=== PATIENT | female | born 2000 | race Caucasian/White ===

== ENCOUNTER 2024-12-11 16:18 | Emergency (ER) | payer OTHER, SELFPAY ==
[2024-12-11 16:28] VITALS: BP 120/75; PULSE 96; TEMP 37.1; O2SAT 99; BMI 39.0
[2024-12-11] MEDS: KETOROLAC TROMETHAMINE 10 MG TABLET PO (18:32)
--- NOTE | 2024-12-11 19:40 | PC.NURSE ---
Pt states pain is tolerable at thia time. Continue to await CT results.
--- NOTE | 2024-12-11 19:46 | ED.GENADUL1 ---
HPI HPI - General Adult General Chief complaint: Headache Stated complaint: NECK AND HEAD PAIN Time Seen by Provider: 12/11/24 18:02 Source: patient and friend Mode of arrival: walk-in Limitations: no limitations History of Present Illness HPI narrative: Patient is a 24-year-old female who presents to the emergency department for 3-day history of headache. She is concerned because she does not regularly get headaches. She states the headache is located on the bilateral occiput with radiation into the sides of the neck and shoulders. She denies visual changes, peripheral paresthesias. She has not had any fevers, upper respiratory symptoms. No nausea or vomiting. She has no concern for . She took ibuprofen yesterday with minimal improvement. No head trauma history. Related Data Home Medications ?Medication ?Instructions ?Recorded ?Confirmed quetiapine 150 mg tablet,extended 150 mg PO DAILY 12/11/24 12/11/24 release 24 hr (Seroquel XR) Previous Rx's ?Medication ?Instructions ?Recorded ketorolac 10 mg tablet 10 mg PO TID PRN pain #10 tabs 12/11/24 methocarbamol 750 mg tablet 750 mg PO TID PRN pain #20 tabs 12/11/24 ondansetron 4 mg disintegrating 4 mg PO Q6H PRN nausea and 12/11/24 tablet vomiting #12 tabs Allergies Allergy/AdvReac Type Severity Reaction Status Date / Time No Known Drug Allergies Allergy Verified 12/11/24 16:32 Opioid HPI Opioid Management Most Recent Opioid Data: Last DEC Pain Assessment 12/11/24 18:32 Review of Systems ROS Constitutional Denies: fever or chills Eyes Denies: blurry vision Ears, nose, mouth, and throat Reports: neck pain; Denies: throat pain or nasal congestion Cardiovascular Denies: chest pain Respiratory Denies: shortness of breath or cough Gastrointestinal Denies: nausea or vomiting Musculoskeletal Reports: neck pain; Denies: back pain Integumentary/Breast Denies: rash Neurological Denies: numbness in extremities or weakness in extremities Hematologic/Lymphatic Denies: easy bruising or easy bleeding PFSH PFSH Social History Little interest or pleasure in doing things: not at all Feeling down, depressed, or hopeless: not at all Exam Narrative Exam Narrative: Gen.: Awake, alert, in no distress, sitting comfortably with no photophobia Head: Normocephalic, atraumatic ENT: Moist mucous membranes, no posterior bony tenderness of the cervical spine. Diffuse minimal tenderness of the paraspinal muscles of the cervical spine and trapezius area bilaterally. 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 Psych: Normal mood and affect Neuro: No focal neuro deficit, clear speech Skin: Warm, dry, intact Constitutional Vital Signs, click to edit/add: Last Vital Signs Temp 98.8 F 12/11/24 16:28 Pulse 96 H 12/11/24 16:28 Resp 16 12/11/24 16:28 BP 120/75 12/11/24 16:28 Pulse Ox 99 12/11/24 16:28 O2 Del Method Room Air 12/11/24 16:28 Course Vital Signs Vital signs: Vital Signs Temperature 98.8 F 12/11/24 16:28 Pulse Rate 96 H 12/11/24 16:28 Respiratory Rate 16 12/11/24 16:28 Blood Pressure 120/75 12/11/24 16:28 Pulse Oximetry 99 12/11/24 16:28 Oxygen Delivery Method Room Air 12/11/24 16:28 Temperature 98.8 F 12/11/24 16:28 Pulse Rate 96 H 12/11/24 16:28 Respiratory Rate 16 12/11/24 16:28 Blood Pressure 120/75 12/11/24 16:28 Pulse Oximetry 99 12/11/24 16:28 Oxygen Delivery Method Room Air 12/11/24 16:28 Medical Decision Making [facility] Narrative Medical decision making narrative: History and physical are consistent with tension headache. Patient is concerned about the persistent nature of the headache and she does not typically get headaches so she was sent for CT of the brain which is unremarkable per radiology. She was treated with Toradol she plans to drive home, she declined Decadron. She will be discharged home on Toradol and Robaxin for tension headache. Follow-up with PCP and return to the ER if symptoms change or worsen. She is hemodynamically stable with a normal neuroexam at discharge. SUPERVISED APC VISIT, PHYSICIAN ATTESTATION: Based on the medical record the care appears appropriate. ? Medical Records Medical records reviewed: Yes I reviewed the patient's medical records Imaging Data CT scan - head: Attestation: I have reviewed the pertinent imaging results. Discharge Plan Discharge Chief Complaint: Headache Clinical Impression: Headache Patient Disposition: Home, Self-Care Time of Disposition Decision: 19:44 Condition: Good Prescriptions / Home Meds: New ketorolac 10 mg tablet 10 mg PO TID PRN (Reason: pain) Qty: 10 0RF methocarbamol 750 mg tablet 750 mg PO TID PRN (Reason: pain) Qty: 20 0RF ondansetron 4 mg tablet,disintegrating 4 mg PO Q6H PRN (Reason: nausea and vomiting) Qty: 12 0RF No Action quetiapine [Seroquel XR] 150 mg tablet extended release 24 hr 150 mg PO DAILY Print Language: Burmese Instructions: Tension Headache (ED), Acute Headache (ED) Referrals: MAKENNA WEBER [Primary Care Provider] - 1 week
== END 2024-12-11 19:53 | disposition home or self-care (01) ==
PROVIDERS: Emergency Provider Emergency Medicine; PCP Family Medicine
DX: R51.9 Headache, unspecified (principal)
CPT/HCPCS: 70450; 99284